=== PATIENT | female | born 1980 | race American Indian/Alaskan Native ===

== ENCOUNTER 2019-12-12 06:22 | Day surgery (SDC) | payer OTHER ==
[~2019-12-12 06:22] MED LIST: LACTATED RINGERS 1,000 ML IV SCH; MIDAZOLAM 2 MG/2 ML INJ IV NR
--- NOTE | 2019-12-12 07:23 | Anesthesia Day of Surgery ---
Anesthesia Day of Surgery - Day of Surgery Patient Examined: Yes Patient H&P Reviewed: Yes Patient is NPO: Yes
--- NOTE | 2019-12-12 07:23 | Anesthesia Consultation ---
Anesthesia Consult and Med Hx Date of service: 12/12/19 - Airway Anesthetic Teeth Evaluation: Good ROM Head & Neck: Adequate Mental/Hyoid Distance: Adequate Mallampati Class: Class II Intubation Access Assessment: Good - Pulmonary Exam CTA: Yes - Cardiac Exam Cardiac Exam: No Murmur - Pre-Operative Health Status ASA Pre-Surgery Classification: ASA2 - Pulmonary Hx Asthma: Yes (As a child) - Central Nervous System Hx Seizures: Yes (Last was 3 yrs ago) Hx Psychiatric Problems: No - Other Systems Hx Cancer: No
[2019-12-12] MEDS ORDERED: LIDOCAINE MPF (2%) 20 MG/1 ML VIAL 5 ML ONE (07:42)
[2019-12-12] MEDS ORDERED: MIDAZOLAM 2 MG/2 ML INJ ONE (07:42)
[2019-12-12] MEDS ORDERED: PROPOFOL 200 MG/20 ML VIAL IV ONE (07:43)
[2019-12-12] MEDS ORDERED: fentaNYL 100 MCG/2 ML INJ ONE (07:43)
[2019-12-12] MEDS ORDERED: GENTAMICIN 80 MG in SODIUM CHLORIDE 0.9% 100 ML IV ONE (07:52)
--- NOTE | 2019-12-12 07:58 | Short Stay Summary ---
Short Stay Documentation Date of service: 12/12/19 Narrative H&P: Pt is a 39yo BF LMP 11/12/19 presents for surgical evaluation and treatment of menorrhagia. She complains of heavy prolonged vaginal bleeding unresolved with hormonal therapy. Pelvic u/s showed no fibroids, and endometrial biopsy was benign. She now presents for a Novasure endometrial ablation. - History Principal diagnosis: Menorrhagia H&P: obtained from office Past Medical History: other (asthma) Past Surgical History: (x3), Other (abdominoplasty; right wrist surgery; DVT filter in left leg) Social history: no significant social history, - Allergies and Medications Current Medications: Allergies amoxicillin Allergy (Verified 11/29/19 10:44) Itching Home Medications Medication Instructions Recorded Confirmed Last Taken Type Topiramate [Topamax] 200 mg PO BID 11/29/19 11/29/19 Unknown History Active Medications Lactated Ringer's (Lactated Ringers) 1,000 mls @ 100 mls/hr IV DIRECT CRISTIANO Gentamicin Sulfate 80 mg/ (Sodium Chloride) 102 mls @ 200 mls/hr IV PREOP ONE; Protocol Stop: 12/12/19 08:21 Clindamycin HCl (Cleocin 900 Mg/50 Ml) 900 mg in 50 mls @ 100 mls/hr IV PREOP ONE; Protocol Stop: 12/12/19 08:21 Midazolam HCl (Versed) 2 mg IV PREOP NR Stop: 12/12/19 23:00 - Physical exam General appearance: no acute distress Integumentary: no rash HEENT: Atraumatic Lungs: Clear to auscultation Breasts: deferred Heart: Regular rate Gastrointestinal: normal Female Genitourinary: deferred Rectal Exam: deferred Extremities: no ischemia, No edema Neurological: Normal gait, Normal speech - Brief post op/procedure progress note Date of procedure: 12/12/19 Pre-op diagnosis: Menorrhagia Post-op diagnosis: same Procedure: Novasure endometrial ablation Anesthesia: MAC Findings: A 10-12 weeks size uterus - sounded to 11cm. Uterine length 6.cm, width 3.7cm, and 122Watts of Power used for 83 secs for the ablation. Surgeon: KAYLEE WELLER Estimated blood loss: minimal Pathology: none Specimen disposition: discarded Condition: stable - Hospital course Hospital course: Unremarkable. - Disposition Condition at discharge: Good Disposition: DC-01 TO HOME OR SELFCARE - Discharge Diagnoses (1) Menorrhagia with regular cycle Status: Resolved Short Stay Discharge Plan Activity: no restrictions Diet: regular Follow up with: KAYLEE WELLER MD [Staff Physician] - 14 Days Prescriptions: HYDROcodone/APAP 5-325 [Cobb 5/325] 1 each PO Q6HR PRN #20 tablet PRN Reason: Pain
[2019-12-12] MEDS ORDERED: GENTAMICIN/NS 80 MG/100 ML 100 ML IV ONE (08:09)
[2019-12-12] MEDS ORDERED: SODIUM CHLORIDE 0.9% IRRIG SOLN 3000 ML IR ONE (08:30)
[2019-12-12] MEDS ORDERED: dexAMETHasone 20 MG/5 ML VIAL ONE (08:36)
[2019-12-12] MEDS ORDERED: KETOROLAC 30 MG/1 ML INJ ONE (08:36)
[2019-12-12] MEDS ORDERED: ONDANSETRON 4 MG/2 ML INJ ONE (08:36)
[2019-12-12] MEDS ORDERED: HYDROmorphone 1 MG/1 ML INJ ONE (08:38)
--- NOTE | 2019-12-12 08:42 | Operative Report ---
Operative Report Operative Report: Date of procedure: 12/12/2019 Pre-operative diagnosis: Menorrhagia Post-operative diagnosis: Same Procedure name(s): NovaSure endometrial ablation Surgeon: Dr. Scottie Quiñonez Chair Spring Assembler: None Anesthesia: Gen. mask by Dr. Linder EBL: Minimal less than 10 mL Findings: A 10-12 week size uterus which sounded to 11 cm. Uterine length was 6.0 cm, width was 3.7 cm, and 112 W of Power was used for 83 seconds for the ablation Procedure: After the patient was correctly identified, and after general anesthesia was administered, she was prepped and draped in the usual sterile fashion placement in the dorsal lithotomy position. First the bladder was emptied with straight catheter, then a speculum was placed in the vaginal vault and anterior lip of the cervix was grasped using single-tooth tenaculum. The uterus was sounded to 11 cm, and the cervical os was sequentially dilated. The hysteroscope was introduced into the cervical canal, and endometrial cavity was observed and found to be without endometrial polyps or masses. The hysteroscope was then removed and the NovaSure device was placed. The uterine length was 6 cm, the width was 3.7 cm, and after adequate placement, 112 W of Power was used to 83 seconds to perform the ablation. The NovaSure device was removed and replaced with a hysteroscope again, and visualization of the endometrial cavity showed excellent ablation of the entire cavity. At this point the procedure was considered complete. All instruments removed from the vagina. The patient tolerated the procedure well and was transferred to recovery in stable condition.
[2019-12-12] MEDS ORDERED: GENTAMICIN/NS 80 MG/100 ML 100 ML IV NR (09:00)
[2019-12-12 09:30] VITALS: BP 116/68
== END 2019-12-12 10:47 | disposition home or self-care (01) ==
LOC: OR 06:22
PROVIDERS: ATTEND Obstetrics & Gynecology
DX: N92.0 Excessive and frequent menstruation with regular cycle (principal); G43.909 Migraine, unspecified, not intractable, without status migrainosus; J45.909 Unspecified asthma, uncomplicated; Z79.899 Other long term (current) drug therapy; Z88.6 Allergy status to analgesic agent; Z88.8 Allergy status to other drugs, medicaments and biological substances; Z86.718 Personal history of other venous thrombosis and embolism; Z98.891 History of uterine scar from previous surgery; Z98.890 Other specified postprocedural states
CPT/HCPCS: 58563; 81025; A4217; J1100; J1170; J1580; J1885; J2250; J2405; J2704; J3010; J7120